=== PATIENT | male | born 1945 | race Caucasian/White ===

== ENCOUNTER 2025-02-14 16:07 | Observation (INO) | payer OTHER, MEDICARE, SELFPAY ==
[2025-02-14] VITALS (13 sets, daily range): BP systolic 110–160; BP diastolic 56–80; PULSE 79; O2SAT 99; BMI 25.5
[2025-02-14 10:35] LABS: Glucose - Point of Care 357 mg/dl (70-99)
--- NOTE | 2025-02-14 11:27 | ED.GENMED ---
History of Present Illness
General
Chief Complaint: Fall
Source: patient
Time Seen by Provider: 02/14/25 10:57
History of Present Illness
History of Present Illness:
79-year-old male with past medical history of hypertension, esophageal stricture, [id number] diabetes and previous prostate cancer presenting to the ER for evaluation after he had an accident trip and fall last night while in [place] landing on his left shoulder and biting his upper lip, today has decreased range of motion of the left shoulder and any pain with the range of motion. No other injuries or concerns. Patient denies any headache, visual changes, focal weakness
or numbness, chest pain or shortness of breath. Patient does take a daily 81 mg aspirin but no other anticoagulant medications. Daughter who is present with the patient states she is concerned about patient's cognitive issues and him going home as
he lives by himself. Notes that patient is noncompliant with his medications and is worried about patient's blood sugars.
Past History
Past History
ED Past Medical History: Cancer (Prostate), HTN, NIDDM and Other (Bowel obstruction, Esohageal restriction, )
ED Past Surgical History: Appendectomy
Social History
Tobacco: Former smoker
Alcohol: Occasional
Drug: None
Personal:
Living: alone
Employment: Employed
Family History
Family History: CAD
Review of Systems
Review of Systems
All Other Systems: ROS reviewed and negative except as documented in HPI and ROS
Phy Exam
Physical Exam
Physical Exam:
GENERAL: Alert , in no apparent distress, repetitive questioning but very pleasant
HEAD: NCAT
EYE: conjunctiva clear
NECK: Supple, no midline tenderness
ENT: o/p clr, mmm. small abrasion upper lip without active bleeding
CARDIAC: Regular rate and rhythm
LUNGS: Clear breath sounds bilaterally, no acute respiratory distress, no wheezes/rales/rhonchi
NEUROLOGICAL: Alert and oriented
SKIN: Warm and dry, skin intact.
MUSCULOSKELETAL: LUE: Deformity at the proximal left humerus noted. Unable to assess range of motion secondary to pain. Distal humerus, elbow and wrist without any deformities or tenderness to palpation. Easily palpable radial pulse. Cap refill
less than 2 seconds. Sensation grossly intact to light touch. Remainder of extremities are within normal limits.
PSYCH: Normal and appropriate interaction.
Scores
Heart Failure Risk
Heart Failure Risk Score: Not Applicable
Heart Score for Chest Pain Patients
STEMI patient?: Not applicable
Withdrawal Assessment of Alcohol
Withdrawal Assessment Completed?: Not applicable
Course
Orders/Labs/Results
Orders:
Orders
02/14/25 10:30
Shoulder, Left, Trauma CR [CR Shoulder, Trauma - Left] Urgent
Comment:
Reason For Exam: pain, decreased ROM
02/14/25 11:15
Case Management Consult ONCE
Case Management Consult: Discharge Planning
Comment: SNF/Rehab
PT Consult [Pt Eval And Treat] Urgent
Treatment: needs SNF/rehab
Activity Level: Ambulate
As Tolerated
02/14/25 11:17
CT Head W/o Iv Contrast Urgent
Comment:
Reason For Exam: fall, head injury, mild cognitive impairment
Urinalysis Reflex To Culture Urgent
02/14/25 11:36
Complete Blood Count/With Diff Urgent
Comprehensive Metabolic Panel Urgent
02/14/25 12:28
Occupational Therapy Consult [Ot Eval And Treat] Urgent
02/14/25 14:10
Ibuprofen [Motrin] 600 mg PO NOW STA
Abnormal Lab Results
02/14/25 02/14/25
10:32 11:36
RBC 3.95 L 10^6/uL
(4.70-6.10)
Hgb 12.2 L g/dL
(13.0-18.0)
Hct 34.1 L %
(39.0-52.0)
Lymphocytes % 17.8 L %
(20.5-51.1)
Sodium 133 L mmol/L
(135-145)
Glucose 319 H mg/dl
(70-99)
POC Glucose 357 H mg/dl
(70-99)
02/14/25 11:36
02/14/25 11:36
Vital Signs
Initial and Last Documented VS:
Initial Vital Signs
Temp Pulse Resp BP Pulse Ox
98.2 F 91 18 110/63 99
02/14/25 10:27 02/14/25 10:27 02/14/25 10:02/14/25 10:02/14/25 10:27
Last Documented Vital Signs
Temp Pulse Resp BP Pulse Ox
98.2 F 91 18 139/64 99
02/14/25 10:02/14/25 10:27 02/14/25 10:27 02/14/25 13:02/14/25 14:15
MDM/Problems Addressed
Differential Diagnosis Includes:
Humerus fracture, shoulder dislocation, contusion, rotator cuff injury, intracranial bleeding, medication noncompliance leading to hyperglycemia, DKA/HHNK considered.
MDM/Problems Addressed:
79-year-old male presenting to the ER for evaluation after sustaining an accidental fall yesterday evening, persistent pain today. X-ray of the left shoulder was ordered in triage shows a nondisplaced left humeral head fracture. Patient's daughter
expressing concern about patient's ability to care for himself at home and ultimately does not feel comfortable with the patient being discharged home. Will order case management and physical therapy consult to help with disposition planning to
SNF/rehab. In the meantime we will check labs and treat patient's hyperglycemia as he had a fingerstick glucose of greater than 350 which I suspect is likely around patient's baseline given his noncompete his medication.
*Radiology
Radiology exam reviewed: preliminary read by ED provider (proximal left humerus fracture) and radiology read reviewed
*Critical Care Note
Total Time (30-74mins, 75-104mins- exclusive of procedures): Not Applicable
Patient Management
Discussion with other providers: Hospitalist
Escalation/DeEscalation of care consider admission/obs:
Patient seen by case management, physical therapy and Occupational Therapy. Decision was ultimately made that patient would need SNF/rehab. Case management unable to place the patient at facility today. Patient not safe to be discharged home.
Will admit for continued evaluation and treatment until patient can be safely dispositioned. Hospitalist team aware
ED Attending Note
-
Portions of this chart may have been created with voice recognition software.� Occasional wrong word or��sound alike� substitutions may have occurred due to the inherent limitations of voice recognition software.
Discharge Plan
Departure
Patient Disposition: Admit
Date of Disposition: 02/14/25
Time of Disposition: 14:12
Presentation/result/management discussed w/ accepting MD/DO: Hospitalist
Discharge Problem:
Closed left humeral fracture, Diabetes mellitus with hyperglycemia, Noncompliance with medication regimen
Prescriptions:
No Action
hydrocodone-acetaminophen [Vicodin] 1 EACH tablet
1 ea PO Q4HPRN PRN (Reason: pain) Qty: 20 0RF
Referrals:
Oral Kowalski I., DO [Family Provider] -
Interventions
Interventions:
*Risk Screen - Suicide Last Done: 02/14/25 10:27
*General Assessment Last Done: 02/14/25 10:27
*Neglect/Abuse Screening Last Done: 02/14/25 11:01
*ED- Fall Risk Assessment Last Done: 02/14/25 11:29
*ED COVID-19 Vaccine History Last Done: 02/14/25 11:01
ED-Musculoskeletal Assessment Last Done: 02/14/25 11:01
ED- Neurological Assessment Last Done: 02/14/25 11:01
ED-Skin Assessment Last Done: 02/14/25 11:01
Discharge Date and Time
Print Language: IVORIAN
[2025-02-14 11:47] LABS: % Basophils 0.3 % (0-2); % Eosinophils 0.8 % (0-6); % Immature Granulocytes 0.3 % (0-0.5); % Lymphocytes 17.8 % (20.5-51.1); % Neutrophils 72.8 % (42.2-75.2); Absolute Eosinophils 0.1 10^3/uL (0-0.7); Absolute Lymphocytes 1.3 10^3/uL (1.2-3.4); Absolute Monocytes 0.6 10^3/uL (0.1-0.6); Absolute Neutrophils 5.4 10^3/uL (1.4-6.5); Hematocrit 34.1 % (39.0-52.0); Hemoglobin 12.2 g/dL (13.0-18.0); Mean Corp Hgb Conc. 35.8 g/dL (33.0-37.0); Mean Corpuscular Hgb 30.9 pg (27.0-31.0); Mean Corpuscular Volume 86.3 fL (80.0-94.0); Mean Platelet Volume 9.5 fL (7.4-10.4); Nucleated Red Blood Cells % 0 % (-); Platelet Count 174 10^3/uL (130-400); Red Blood Cell Count 3.95 10^6/uL (4.70-6.10); Red Cell Dist. Width 12.7 % (11.5-14.5); White Blood Cell Count 7.4 10^3/uL (4.8-10.8)
[2025-02-14 12:02] LABS: ALT (SGPT) 21 U/L (0-50); AST (SGOT) 24 U/L (17-59); Albumin 3.7 g/dl (3.5-5.0); Alkaline Phosphatase 71 U/L (38-126); Blood Urea Nitrogen 17 mg/dl (9-20); Calcium 9.1 mg/dl (8.4-10.2); Carbon Dioxide 26 mmol/L (22-30); Chloride 104 mmol/L (98-107); Estimated Creatinine Clearance 77 ml/min; Glucose 319 mg/dl (70-99); Potassium 4.4 mmol/L (3.5-5.1); Sodium 133 mmol/L (135-145); Total Bilirubin 1.1 mg/dl (0.2-1.3); Total Protein 6.3 g/dl (6.3-8.2); eGFR > 60.00
--- NOTE | 2025-02-14 12:15 | CM ---
Addendum entered by Jordi Muñoz 02/14/25 14:01:
Per [facility] SN[facility] sustainability director they do not have bed available and will not have one till early next week.
Awaiting for determination from [facility].
Original Note:
CM following re: discharge planning.
CM consulted to assist the pt with a placement to a SNF for a short term rehab.
Reviewed pt's chart, met with pt and pt's daughter Amanda at bedside.
Pt is an 79 year old male, arrived to ED after he fell at home resulting Shoulder, Left, Trauma CR [CR Shoulder, Trauma - Left] Urgent .
per daughter, p[t lives alone in [place], 6 steps to enter, has 5 supportive children. 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 Pt's daughter requested [facility]F or
[facility]. A referral to above SNFs made.
PT and OT will evaluate to determine a level of care at discharge.
PCP: Oral Edmond
Pharmacy: [facility]
D/C plan: preferred SNF: [facility] home [facility] or [facility].
CM will follow to assist pt with discharge to a preferred SNF.
[2025-02-14] MEDS: MOTRIN 600 MG PO (14:12)
--- NOTE | 2025-02-14 15:06 | HPS.HSE ---
Family Physician
-
Family Physician: Oral Kowalski
Chief Complaint
-
Fall
History of Present Illness
79-year-old male with past medical history of hypertension, esophageal stricture, [id number]-vdxuunafb diabetes and previous prostate cancer presenting to the ER for evaluation after he had an accident trip and fall last night while in [place] landing on his left shoulder and biting his upper lip today has decreased range of motion of the left shoulder and any pain with the range of motion. No other injuries or concerns. Patient denies any headache, visual changes, focal weakness
or numbness, chest pain or shortness of breath. Denied fever, chills, congestion, cough. Patient denied any abdominal pain, nausea, vomiting, diarrhea. Patient denied dysuria hematuria.
X-ray with comminuted nondisplaced fracture of the proximal humerus. Left arm in sling. Admitting for further management
Medical History
Past Medical History
Past Medical History: Reports Other
Additional Past Medical History:
Hypertension
Type 2 diabetes
Hyperlipidemia
Dysphagia
Prostate cancer
Pharyngeal esophageal dysphagia
Colon polyps
H. pylori
Past Surgical History: Reports Other
Additional Past Surgical History:
Appendectomy
Social History
Tobacco: Non-smoker
Alcohol: None
Drug: None
Personal: Single
Living: Alone
Family History
Family History: Not pertinent
Allergies / Home Medications
Allergies reflects when Allergies were last updated in [employer]
Home Medications with original date entered in [employer]
Allergy/Medication List:
Allergies
Allergy/AdvReac Type Severity Reaction Status Date / Time
No Known Allergies Allergy Unverified 02/14/25 10:28
Home Medications
aspirin 81 mg tablet 81 mg PO DAILY 02/14/25
cinnamon bark 500 mg capsule (Cinnamon) 500 mg PO DAILY 02/14/25
glimepiride 4 mg tablet 4 mg PO DAILY 02/14/25
lisinopril 10 mg tablet 10 mg PO DAILY 02/14/25
omeprazole 20 mg capsule,delayed release 20 mg PO DAILY 02/14/25
simvastatin 10 mg tablet 10 mg PO DAILY 02/14/25
therapeutic multivitamin 1 tab PO DAILY 02/14/25
Review of Systems
-
Constitutional: Reports No Symptoms
EENT: Reports No Symptoms
Respiratory: Reports No Symptoms
Cardiac: Reports No Symptoms
Abdomen/GI: Reports No Symptoms
: Reports No Symptoms
Musculoskeletal: Reports Other (Left shoulder pain)
Skin: Reports No Symptoms
Neurological: Reports No Symptoms
Endocrine: Reports No Symptoms
Hematologic/Lymphatic: Reports No Symptoms
Psych: Reports No Symptoms
Physical Exam
Vital Signs
Vital Signs
Temp Pulse Resp BP Pulse Ox
98.2 F 91 18 139/64 99
02/14/25 10:27 02/14/25 10:27 02/14/25 10:27 02/14/25 13:17 02/14/25 14:15
Physical Exam
General: Well Developed, Well Nourished and No Apparent Distress
HEENT: NormoCephalic, Moist mucous membranes and Atraumatic
Respiratory: Clear
Cardiac: S1/S2 and Regular Rhythm; No Murmur or Rub
GI: Soft, Non Tender, Non Distended and Normal Bowel Sounds; No Organomegaly
Rectal: Deferred by Provider
Musculoskeletal: No Clubbing, No Cyanosis, No Edema and Other (Left shoulder in sling)
Skin: No Rash
Neuro: AO x 3 and Nonfocal/grossly intact
Psych: Calm
Laboratory Results
-
02/14/25 11:36
02/14/25 11:36
Laboratory Results
Total Bilirubin 1.1 mg/dl (0.2-1.3) 02/14/25 11:36
AST 24 U/L (17-59) 02/14/25 11:36
ALT 21 U/L (0-50) 02/14/25 11:36
Alkaline Phosphatase 71 U/L (38-126) 02/14/25 11:36
Data Reviewed
-
Diagnostic Radiology: Report Reviewed by me
CT Scan: Report Reviewed by me
Impression/Plan
-
# Left humerus fracture secondary to mechanical fall
- PT/OT consulted
- Case management consulted for dispo
- Head CT with no acute finding
- Shoulder x-ray with comminuted and displaced fracture of the proximal humerus extending from the greater tuberosity into the humeral neck
-orthopedics consulted
# Type 2 diabetes with hyperglycemia
# Pseudohyponatremia
- Sliding scale
- Carb controlled diet
- Glimepiride continued
# Essential hypertension
- Lisinopril continue with hold parameter
#Hyperlipidemia
- Simvastatin continue
# GERD
- PPI continued
# History of prostate cancer
# DVT prophylaxis
- Lovenox subcu
# CODE STATUS
- Patient is DNR
--- NOTE | 2025-02-14 15:36 | W.PN.UPDATE ---
Update Note
Progress Note Update
This is an addendum to the H&P written by Lottie Sykes on 02/14/2025. Patient seen examined independently with TITLE CHECKER.
79-year-old male past medical history of hypertension, diabetes, hyperlipidemia, H. pylori, Schatzki's ring, prostate cancer presenting with trip and fall last night while [place] landing on his left shoulder and biting his left upper lip.
Labs normal apart from blood sugar of 319.
Shoulder x-ray shows comminuted displaced fracture of the proximal humerus. Tylenol, Oxy for pain as needed. Orthopedics consulted. PT/OT, case management. Add insulin sliding scale to glimepiride for hyperglycemia. Check A1c.
[2025-02-14 17:56] LABS: Urine Albumin Negative (Neg - Trace); Urine Bilirubin Negative (Negative); Urine Character Clear (Clear); Urine Color Yellow; Urine Glucose 4+ (Negative); Urine Ketone Negative (Negative); Urine Leukocyte Negative (Negative); Urine Nitrite Negative (Negative); Urine Occult Blood Negative (Negative); Urine Urobilinogen Negative (Neg - 1+)
[2025-02-14 18:49] LABS: Glucose - Point of Care 362 mg/dl (70-99)
[2025-02-14] MEDS: NOVOLOG FLEXPEN-MODERATE RESISTANCE 9 UNITS SC (20:22)
[2025-02-14] MEDS: TYLENOL 650 MG PO (20:24)
[2025-02-14] MEDS: LOVENOX 40 MG SC (20:24)
[2025-02-14] MEDS: SENOKOT 17.2 MG PO (20:25)
[2025-02-14] MEDS: COLACE 100 MG PO (20:25)
[2025-02-14] MEDS: TYLENOL PO (21:24)
[2025-02-14 21:47] LABS: Glucose - Point of Care 250 mg/dl (70-99)
[2025-02-15] MEDS: TYLENOL PO (00:11)
[2025-02-15] MEDS: TYLENOL 650 MG PO ×5 (05:18→22:16)
[2025-02-15] MEDS: ROXICODONE 5 MG PO ×2 (05:39→16:16)
[2025-02-15 07:00] VITALS: BP 119/61
--- NOTE | 2025-02-15 07:58 | W.PN.UPDATE ---
Addendum entered and electronically signed by Marshall Singh MD 02/15/25 12:17:
Patient seen and examined. Discussed his fracture with the patient, his nurse and his 2 daughters. Plan for sling use and NWB for 3-4 weeks and xrays as below. Full consult dictated.
Original Note:
Update Note
Progress Note Update
Full orthopedic consult dictated'
Dx: Left comminuted impacted proximal humerus fracture with minimal displacement
Plan: At the moment patient's left proximal humerus fracture is in acceptable alignment so treat nonsurgically. He will be nonweightbearing with sling, ice, Tylenol and pain medication as indicated. Follow-up in office 1 to 2 weeks for repeat
x-ray. If further displacement surgical intervention might be necessary.
[2025-02-15 07:59] LABS: Glucose - Point of Care 233 mg/dl (70-99)
[2025-02-15] MEDS: NOVOLOG FLEXPEN-MODERATE RESISTANCE 3 UNITS SC (08:21)
[2025-02-15] MEDS: ASPIR LOW (ENTERIC COATED) 81 MG PO (08:22)
[2025-02-15] MEDS: PROTONIX 40 MG PO (08:22)
[2025-02-15] MEDS: SENOKOT 17.2 MG PO ×2 (08:22→22:16)
[2025-02-15] MEDS: AMARYL 4 MG PO (08:22)
[2025-02-15] MEDS: COLACE 100 MG PO ×2 (08:22→22:16)
[2025-02-15] MEDS: ZESTRIL 10 MG PO (08:26)
--- NOTE | 2025-02-15 08:36 | CM ---
Chart reviewed and OBS letter provided, patient has been referred to [facility] and [facility], per admissions at [facility] there are no beds available today, still waiting on admissions at [facility] to review.
Plan; Skilled placement at [facility] or [facility].
--- NOTE | 2025-02-15 10:05 | W.PN.HOSP.TC ---
Today's Communication/Plan
-
Case management for SNF placement
Start 15 units Lantus
Assessment / Plan
Assessment / Plan
79-year-old male with past medical history of hypertension, DM type II, H/O prostate cancer, being managed for his proximal humerus fracture.
# Left humerus fracture
Secondary to mechanical fall
Head CT with no acute finding
Shoulder x-ray- There is a comminuted undisplaced fracture of the proximal humerus extending from the greater tuberosity into the humeral neck.
Orthopedics consulted
Plan on treating it nonsurgically
Nonweightbearing with sling
Rest, ice, Tylenol for pain.
PT/OT consulted
Recommends SNF
# Type 2 diabetes with hyperglycemia
Continue glimepiride
HbA1c�10.8
Will start insulin Lantus 15 units
Carb controlled diet
Insulin sliding scale
# Essential hypertension
Lisinopril continue with hold parameter
#Hyperlipidemia
Simvastatin continue
# GERD
PPI continued
# History of prostate cancer
# DVT prophylaxis
Lovenox subcu
Diet�carb controlled diet
# CODE STATUS
- Patient is DNR
Anticipated Discharge: 24 - 48 hours
Subjective/Interval History
-
Date of Service: February 15, 2025
Patient reports improvement in shoulder pain.
Objective Data
-
Vital Signs:
Vital Signs
Temp Pulse Resp BP Pulse Ox
97.6 F 74 20 119/61 99
02/15/25 07:00 02/15/25 07:00 02/15/25 07:00 02/15/25 07:00 02/15/25 07:00
I&O
02/14/25 02/15/25 02/16/25
06:59 06:59 06:59
Intake Total 600 / 600
Output Total 750 / 750
Balance -150 / -150
Review of Systems
-
All other systems: Reviewed and negative (Except as mentioned)
Physical Exam
-
General: Well Developed and Well Nourished
HEENT: Normocephalic, Atraumatic and Other (Small abrasion on the upper lip)
Respiratory: Clear to Auscultation
Cardiac: Regular Rhythm and S1/S2
GI: Soft, Nontender, Nondistended and Normal Bowel Sounds
Musculoskeletal: Other (Left upper extremity in sling)
Neuro: Awake, Alert, Oriented and AO x 3
Psych: Calm
[2025-02-15 11:57] LABS: Glucose - Point of Care 293 mg/dl (70-99)
[2025-02-15] MEDS: NOVOLOG FLEXPEN-MODERATE RESISTANCE 5 UNITS SC (12:00)
[2025-02-15 13:17] LABS: Glycohemoglobin (HgbA1c) 10.8 % (4.0-5.6)
[2025-02-15 13:53] LABS: Glucose - Point of Care 271 mg/dl (70-99)
[2025-02-15 13:57] VITALS: BP 106/65; BP 93/60; PULSE 94; O2SAT 98
[2025-02-15 15:00] VITALS: BP 72/52
[2025-02-15] MEDS: ZOFRAN 4 MG IV (15:35)
[2025-02-15 17:04] LABS: Glucose - Point of Care 344 mg/dl (70-99)
[2025-02-15] MEDS: NOVOLOG FLEXPEN-MODERATE RESISTANCE 7 UNITS SC (17:07)
[2025-02-15] MEDS: LIPITOR 10 MG PO (17:09)
[2025-02-15] MEDS: LOVENOX 40 MG SC (17:09)
[2025-02-15 17:27] VITALS: BP 128/66
[2025-02-15 22:06] LABS: Glucose - Point of Care 304 mg/dl (70-99)
[2025-02-15] MEDS: LANTUS 0.15 UNITS SC (22:16)
[2025-02-15 23:39] VITALS: BP 102/60
[2025-02-16] MEDS: TYLENOL 650 MG PO ×3 (00:42→12:09)
[2025-02-16] MEDS: TYLENOL PO ×2 (04:15→12:10)
[2025-02-16 07:00] VITALS: BP 141/66
[2025-02-16] MEDS: ASPIR LOW (ENTERIC COATED) 81 MG PO (07:40)
[2025-02-16] MEDS: ZESTRIL 10 MG PO (07:40)
[2025-02-16] MEDS: SENOKOT 17.2 MG PO (07:40)
[2025-02-16] MEDS: AMARYL 4 MG PO (07:40)
[2025-02-16] MEDS: PROTONIX 40 MG PO (07:40)
[2025-02-16] MEDS: COLACE 100 MG PO (07:42)
[2025-02-16] MEDS: NOVOLOG FLEXPEN-MODERATE RESISTANCE 1 UNITS SC ×2 (07:55→16:48)
[2025-02-16 07:56] LABS: Glucose - Point of Care 158 mg/dl (70-99)
[2025-02-16 08:13] LABS: Hematocrit 31.1 % (39.0-52.0); Hemoglobin 10.7 g/dL (13.0-18.0); Mean Corp Hgb Conc. 34.4 g/dL (33.0-37.0); Mean Corpuscular Hgb 29.9 pg (27.0-31.0); Mean Corpuscular Volume 86.9 fL (80.0-94.0); Mean Platelet Volume 10.3 fL (7.4-10.4); Platelet Count 158 10^3/uL (130-400); Red Blood Cell Count 3.58 10^6/uL (4.70-6.10); Red Cell Dist. Width 12.6 % (11.5-14.5); White Blood Cell Count 5.6 10^3/uL (4.8-10.8)
[2025-02-16 08:27] LABS: ALT (SGPT) 30 U/L (0-50); AST (SGOT) 33 U/L (17-59); Albumin 3.3 g/dl (3.5-5.0); Alkaline Phosphatase 78 U/L (38-126); Blood Urea Nitrogen 15 mg/dl (9-20); Calcium 9.2 mg/dl (8.4-10.2); Carbon Dioxide 28 mmol/L (22-30); Chloride 106 mmol/L (98-107); Estimated Creatinine Clearance 77 ml/min; Glucose 170 mg/dl (70-99); Potassium 4.3 mmol/L (3.5-5.1); Sodium 137 mmol/L (135-145); Total Bilirubin 1.1 mg/dl (0.2-1.3); Total Protein 5.9 g/dl (6.3-8.2); eGFR > 60.00
[2025-02-16 09:13] VITALS: BP 110/65; BP 135/75; BP 76/57; PULSE 74
[2025-02-16 11:38] LABS: Glucose - Point of Care 353 mg/dl (70-99)
[2025-02-16] MEDS: NOVOLOG FLEXPEN-MODERATE RESISTANCE 9 UNITS SC (12:11)
--- NOTE | 2025-02-16 12:48 | W.PN.HOSP.TC ---
Today's Communication/Plan
-
Start mealtime insulin
Continue Lantus and ISS
Supportive measures for humerus fracture
Discharge planning
Assessment / Plan
Assessment / Plan
#Left humerus fracture
-Secondary to mechanical fall
-Shoulder x-ray- There is a comminuted undisplaced fracture of the proximal humerus extending from the greater tuberosity into the humeral neck.
-Orthopedics consulted, recommended on treating it nonsurgically and maintaining NWB with sling in place
-Rest, ice, Tylenol for pain.
-PT/OT
#Type 2 diabetes with hyperglycemia
-Previous NIDDM, no known microvascular ischemic complications
-A1c here was 10.8%, constantly elevated Accu-Cheks despite ISS
-Started Lantus 15 units, remains with elevated sugars
-Will add 5 units aspart mealtime, continue Lantus and ISS
-Glucose goal 140-180
-Likely needs OP endo f/u
# Essential hypertension
-No known history of hypertensive systemic disease
-Continue with home lisinopril 10 mg
#Hyperlipidemia
-No known history of ASCVD though does have risk factors
-Continue home simvastatin, OP follow-up with PCP for repeat lipids and consideration of high intensity statin
#GERD
-No known history of erosive disease or Smith's esophagus
-Home medication includes daily omeprazole
# History of prostate cancer
DVT prophylaxis: Lovenox subcu
Diet: carb controlled diet
CODE STATUS: Patient is DNR
PT recommended SNF, pending insurance approval and bed availability
Anticipated Discharge: 24 - 48 hours
Subjective/Interval History
-
Date of Service: February 16, 2025
Seen and examined at the bedside. No acute events reported overnight. AFVSS this morning.
A1c yesterday 10.8%. Was started on Lantus 15 units with ISS. Sugars remain elevated today.
Patient denies any new complaints, states he does not have any significant pain in the arm
Objective Data
-
Labs:
Laboratory Results
02/16/25
07:05
WBC 5.6
Hgb 10.7 L
Hct 31.1 L
Plt Count 158
Sodium 137
Potassium 4.3
Chloride 106
Carbon Dioxide 28
BUN 15
Creatinine 0.8
Glucose 170 H
Calcium 9.2
Total Bilirubin 1.1
AST 33
ALT 30
Alkaline Phosphatase 78
Vital Signs:
Vital Signs
Temp Pulse Resp BP Pulse Ox
98.0 F 75 16 141/66 96
02/16/25 07:00 02/16/25 07:00 02/16/25 07:00 02/16/25 07:00 02/16/25 07:45
I&O
02/15/25 02/16/25 02/17/25
06:59 06:59 06:59
Intake Total 600 / 600 960 / 960
Output Total 750 / 750 1100 / 1100
Balance -150 / -150 -140 / -140
Review of Systems
-
History Source: Patient
All other systems: Reviewed and negative
Physical Exam
-
General: Well Developed, Well Nourished, No Apparent Distress and Comfortable
HEENT: Normocephalic, Atraumatic, Moist Mucous Membranes and Anicteric
Respiratory: Clear to Auscultation and Non Labored Respirations; Negative Accessory Resp Muscle Use
Cardiac: Regular Rhythm and S1/S2; Negative Murmur, Rub or Gallop
GI: Soft, Nontender, Nondistended and Normal Bowel Sounds
Musculoskeletal: No Clubbing, No Cyanosis, No Edema and Other (LUE sling in place)
Skin: Warm, Dry and Normal Turgor; Negative Rash
Neuro: AO x 3 and Nonfocal/Grossly Intact; Negative Tremors
Psych: Calm
Data Reviewed
-
Labs: Labs Reviewed by me and Discussed with Patient
[2025-02-16 15:00] VITALS: BP 116/59
--- NOTE | 2025-02-16 15:43 | CM ---
Patient stable for d/c today. Patient will need skilled rehab
[facility] accepted, able to offer bed today
[facility] called [phone] to initiate [place], spoke w/ Nicki. Auth approved beginning today, next review date is 02/20.
Auth ref # [id number]
Updated Marylou/[facility] admissions
Updated patient bedside w/ daughter on speakerphone. Both patient and daughter agreeable to w/c van and cost
[facility]
Report: [phone]

Plan: D/c today to [facility]
[2025-02-16 16:08] VITALS: BP 116/59; PULSE 85; O2SAT 97
[2025-02-16 16:23] LABS: Glucose - Point of Care 169 mg/dl (70-99)
[2025-02-16] MEDS: NOVOLOG FLEXPEN 5 UNITS SC (16:47)
[2025-02-16] MEDS: LIPITOR 10 MG PO (16:48)
[2025-02-16] MEDS: LOVENOX 40 MG SC (16:48)
== END 2025-02-16 17:42 ==
LOC: 4 WEST ACU 16:07
PROVIDERS: Physician Assistant Medical; Registered Nurse; Student in an Organized Health Care Education/Training Program; ADMITTING PHYSICIAN Hospitalist; ATTENDING PHYSICIAN Internal Medicine; EMERGENCY PHYSICIAN Student in an Organized Health Care Education/Training Program; FAMILY PHYSICIAN Internal Medicine
DX: S42.302A Unspecified fracture of shaft of humerus, left arm, initial encounter for closed fracture (principal); M25.512 Pain in left shoulder; Z79.82 Long term (current) use of aspirin; W01.0XXA Fall on same level from slipping, tripping and stumbling without subsequent striking against object, initial encounter; E11.65 Type 2 diabetes mellitus with hyperglycemia; I10 Essential (primary) hypertension; Z79.899 Other long term (current) drug therapy; E78.5 Hyperlipidemia, unspecified; K21.9 Gastro-esophageal reflux disease without esophagitis; Z66 Do not resuscitate
CPT/HCPCS: 70450; 73030; 80053; 81003; 82962; 83036; 85025; 85027; 97116; 97530; 97535; 99285; G0378

== ENCOUNTER → 2025-02-19 13:00 | Outpatient (REF) | payer OTHER, MEDICARE, SELFPAY ==
[2025-02-19 13:26] LABS: % Basophils 0.6 % (0-2); % Eosinophils 3.1 % (0-6); % Immature Granulocytes 0.1 % (0-0.5); % Lymphocytes 22.4 % (20.5-51.1); % Monocytes 8.5 % (1.7-9.3); % Neutrophils 65.3 % (42.2-75.2); Absolute Eosinophils 0.2 10^3/uL (0-0.7); Absolute Lymphocytes 1.5 10^3/uL (1.2-3.4); Absolute Monocytes 0.6 10^3/uL (0.1-0.6); Absolute Neutrophils 4.4 10^3/uL (1.4-6.5); Hemoglobin 9.8 g/dL (13.0-18.0); Mean Corpuscular Hgb 30.6 pg (27.0-31.0); Mean Corpuscular Volume 87.5 fL (80.0-94.0); Mean Platelet Volume 9.9 fL (7.4-10.4); Nucleated Red Blood Cells % 0 % (-); Platelet Count 206 10^3/uL (130-400); Red Cell Dist. Width 12.9 % (11.5-14.5); White Blood Cell Count 6.7 10^3/uL (4.8-10.8)
[2025-02-19 13:31] LABS: Blood Urea Nitrogen 13 mg/dl (9-20); Calcium 8.7 mg/dl (8.4-10.2); Carbon Dioxide 25 mmol/L (22-30); Chloride 107 mmol/L (98-107); Glucose 160 mg/dl (70-99); Potassium 3.9 mmol/L (3.5-5.1); Sodium 136 mmol/L (135-145); eGFR > 60.00
== END ==
LOC: OLABP 13:00
PROVIDERS: ATTENDING PHYSICIAN Family Medicine
DX: E11.65 Type 2 diabetes mellitus with hyperglycemia (principal); Z91.148 Patient's other noncompliance with medication regimen for other reason; I10 Essential (primary) hypertension; E78.5 Hyperlipidemia, unspecified; K21.9 Gastro-esophageal reflux disease without esophagitis
CPT/HCPCS: 36415; 80048; 85025

== ENCOUNTER 2025-03-24 10:31 | Outpatient (RCR) | payer OTHER, SELFPAY | END 2025-03-24 23:59 | disposition home or self-care (01) | LOC: RPT 10:31 | PROVIDERS: ATTENDING PHYSICIAN Physician Assistant Surgical; FAMILY PHYSICIAN Internal Medicine | DX: M25.512 Pain in left shoulder (principal); S42.202D Unspecified fracture of upper end of left humerus, subsequent encounter for fracture with routine healing; R29.6 Repeated falls; R26.89 Other abnormalities of gait and mobility; Z73.6 Limitation of activities due to disability | CPT/HCPCS: 97163; 97530 ==

== ENCOUNTER 2025-04-21 13:12 | Outpatient (RCR) | payer OTHER, SELFPAY | END 2025-04-21 23:59 | disposition home or self-care (01) | LOC: RPT 13:12 | PROVIDERS: ATTENDING PHYSICIAN Physician Assistant Surgical; FAMILY PHYSICIAN Internal Medicine | DX: M25.512 Pain in left shoulder (principal); S42.202D Unspecified fracture of upper end of left humerus, subsequent encounter for fracture with routine healing; R26.89 Other abnormalities of gait and mobility; R29.6 Repeated falls; Z73.6 Limitation of activities due to disability | CPT/HCPCS: 97010; 97110; 97140; 97530 ==